=== PATIENT | male | born 1965 | race American Indian/Alaskan Native ===

== ENCOUNTER 2018-08-05 01:34 | Emergency (ER) | payer SELFPAY ==
--- NOTE | 2018-08-05 04:25 | Emergency Department Report ---
Chief Complaint: Medical Clearance Stated Complaint: MED REFILL Time Seen by Provider: 08/05/18 04:18 - HPI History of Present Illness: This is a 53-year-old -[place] male presents for a ride to the [facility]. Patient states he does not feel like walking over to the [facility] and we were so helpful last visit. He denies any new complaints. He denies request for medication. - ROS Review of Systems: No complaints. - Exam Vital Signs: Vital Signs 08/05/18 01:59 Temperature 97.8 F Pulse Rate 54 L Respiratory 18 Rate Blood Pressure 116/63 O2 Sat by Pulse 100 Oximetry Physical Exam: GENERAL: The patient is looking unwell, but in no acute distress. MSE screening note: Focused history and physical exam performed. Due to findings the following was ordered: Patient sent to admission for assistance. ED Disposition for MSE Condition: Stable Referrals: ANKITA HU MD [Primary Care Provider] - 3-5 Days
== END 2018-08-05 04:30 | disposition home or self-care (01) ==
LOC: ED 01:34